=== PATIENT | male | born 1960 | race Caucasian/White ===

== ENCOUNTER 2016-06-19 15:42 | Emergency (ER) ==
[2016-06-19 15:52] VITALS: BP 126/86; TEMP 97.7; BMI 37.0
[2016-06-19 16:27] LABS: ADD URINE MICROSCOPIC NO; BILIRUBIN,URINE Negative (NEGATIVE); KETONES,URINE Trace (NEGATIVE); LEUKOCYTE ESTERASE ,URINE Negative (NEGATIVE); NITRITE,URINE Negative (NEGATIVE); PROTEIN,URINE Negative (NEGATIVE); URINE, BLOOD Negative (NEGATIVE)
[2016-06-19 16:34] LABS: BASOPHILS # (AUTO) 0.1 K/uL (0-0.2); BASOPHILS % (AUTO) 0.9 % (0.0-3.0); EOSINOPHILS # (AUTO) 0.1 K/ul (0.0-0.7); EOSINOPHILS % (AUTO) 1.1 % (0.0-7.0); HEMATOCRIT 47.7 % (42.0-52.0); HEMOGLOBIN 15.6 g/dl (14.0-18.0); IMMATURE GRANULOCYTE % (AUTO) 0.7 % (0.0-5.0); LYMPHOCYTES # (AUTO) 3.3 K/uL (0.60-3.4); LYMPHOCYTES % (AUTO) 39.1 (10.0-50.0); MEAN CORPUSCULAR HEMOGLOBIN 33.7 pg (27.0-31.0); MEAN CORPUSCULAR HGB CONC 32.7 (31.8-35.4); MONOCYTES # (AUTO) 0.8 K/uL (0.4-2.0); MONOCYTES % (AUTO) 9.2 (0-10); NEUTROPHILS # (AUTO) 4.2 K/ul (2.0-6.9); PLATELET COUNT 199 10^3/uL (140-440); RED BLOOD COUNT 4.63 10^6/ul (4.70-6.10); WHITE BLOOD COUNT 8.52 K/ul (4.2-10.2)
[2016-06-19 16:57] LABS: ALBUMIN 3.4 g/dL (3.4-5.0); ALBUMIN/GLOBULIN RATIO 0.92; ANION GAP 14.8; BILIRUBIN,TOTAL 0.37 mg/dL (0.00-1.20); BUN/CREATININE RATIO 24.28; CALCIUM 9.5 mg/dL (8.2-10.2); CREATININE 1.4 mg/dL (0.60-1.10); POTASSIUM 3.8 mmol/L (3.5-5.1); TOTAL PROTEIN 7.1 g/dL (6.4-8.2)
--- NOTE | 2016-06-19 17:17 | CT ---
EXAM: Noncontrast CT of the abdomen and pelvis. HISTORY: Cough. COMPARISON: None. TECHNIQUE: Contiguous axial images at 3 mm intervals were obtained from lung bases through the pelv is. No contrast was given. Coronal reformats were reviewed. FINDINGS: The study is limited without contrast. CHEST: The lung bases show no lobar consolidation or effusion. The heart size is within normal mayo its. ABDOMEN: Evaluation of the soft tissue organs is limited without contrast. LIVER: Noncontrast images of the liver show no solid mass lesion or intrahepatic ductal dilatation. BILIARY: The gallbladder is normally distended. No gallstones are noted. No pericholecystic fluid or inflammation. The common bile duct is normal. SPLEEN: The spleen is unremarkable. PANCREAS: The pancreas shows no mass lesion or peripancreatic inflammation. ADRENAL GLANDS: The adrenal glands are normal. RENAL: The kidneys show no hydronephrosis or nephrolithiasis. There are no obstructing ureteral st ones. No solid mass lesions are identified. RETROPERITONEUM: The aorta is unopacified. No aneurysm is identified. No aortic calcifications ar e seen. There is no retroperitoneal or mesenteric adenopathy. BOWEL: The bowel is unopacified. There is no obstruction or inflammatory change. There is no free fluid or free air. No significant inflammatory changes are seen. Diverticulosis is seen without evidence of acute diverticulitis. The appendix is identified and is normal. PELVIS: BLADDER: The bladder is not well distended which limits evaluation.. GENITOURINARY STRUCTURES: The prostate is unremarkable. OSSEOUS STRUCTURES: The osseous structures are normal for age. IMPRESSION 1. No acute intra-abdominal abnormality. Limited study without contrast. No obstructing ureteral stones. 2. The appendix is normal. 3. Diverticulosis without evidence of acute diverticulitis.
--- NOTE | 2016-06-19 17:23 | ED.PDOC ---
General ED Provider: Dr. PEYTON AUSTIN Chief Complaint: Abdominal Pain Stated Complaint: abdominal pain Time Seen by Physician: 15:45 Mode of Arrival: Walk-In Information Source: Patient, [facility] Exam Limitations: No limitations Primary Care Provider: ROMANA MEDINA Nursing and Triage Documentation Reviewed and Agree: Yes GI Complaint Exam - Abdominal Pain Complaint/Exam Onset: Gradual Duration: 1 day Symptoms Are: Still present Timing: Constant Initial Severity: Moderate Current Severity: Moderate Location of Pain: Diffuse Character: Reports: Aching Aggravating: Reports: None Alleviating: Reports: None Associated Signs and Symptoms: Denies: Diaphoresis, Fever, Cough, Chest pain, Dizziness, Back pain, Constipation, Blood in stool, Dysuria, Urinary frequency, Decreased urine output, Decreased appetite, Discharge, Nausea, Vomiting, Diarrhea, Decreased activity Related History: Reports: Similar episode AAA Risk Factors: Reports: None Cardiac Risk Factors: Reports: None Testicular Torsion Risk Factors: Reports: None Surgical Obstruction Risk Factors: Reports: None Related Surgical History: Reports: None Abdominal Findings: Present: None Review of Systems - Review Of Systems Constitutional: Reports: No symptoms Eyes: Reports: No symptoms Ears, Nose, Mouth, Throat: Reports: No symptoms Respiratory: Reports: No symptoms Cardiac: Reports: No symptoms GI: Reports: Abdominal pain : Reports: No symptoms Musculoskeletal: Reports: No symptoms Skin: Reports: No symptoms Neurological: Reports: No symptoms Endocrine: Reports: No symptoms Hematologic/Lymphatic: Reports: No symptoms All Other Systems: Reviewed and Negative Past Medical History - Past Medical History Endocrine: Reports: DM 1 Cardiovascular: Reports: Hypertension Respiratory: Reports: None Hematological: Reports: Anemia Gastrointestinal: Reports: None Genitourinary: Reports: None Neuro/Psych: Reports: Seizure Musculoskeletal: Reports: None Cancer: Reports: None - Surgical History General Surgical History: Reports: Unknown - Family History Family History: Reports: Unknown - Social History Smoking Status: Never smoker Hx Substance Use: No Alcohol Screening: None Physical Exam - Physical Exam Appearance: Well-appearing, No pain distress, Well-nourished Eyes: ANGELA, EOMI, Conjunctiva clear ENT: Ears normal, Nose normal, Oropharynx normal Respiratory: Airway patent, Breath sounds clear, Breath sounds equal, Respirations nonlabored Cardiovascular: RRR, Pulses normal, No rub, No murmur GI/: Soft, Nontender, No masses, Bowel sounds normal, No Organomegaly Musculoskeletal: Normal strength, ROM intact, No edema, No calf tenderness Skin: Warm, Dry, Normal color Neurological: Sensation intact, Motor intact, Reflexes intact, Cranial nerves intact, Alert, Oriented Psychiatric: Affect appropriate, Mood appropriate Interpretation - Radiology Interpretation Radiology Interpretation By: Radiologist Radiology Results: No acute changes Critical Care Note - Critical Care Note Total Time (mins): 0 Course - Course Hematology/Chemistry: 06/19/16 16:30 06/19/16 16:30 Orders, Labs, Meds: Lab Review 06/19/16 06/19/16 15:55 16:30 WBC 8.52 RBC 4.63 L Hgb 15.6 Hct 47.7 MCV 103.0 H MCH 33.7 H MCHC 32.7 RDW Coeff of Thiago 12.4 Plt Count 199 Immature Gran % (Auto) 0.7 Neut % (Auto) 49.0 Lymph % (Auto) 39.1 [place] % (Auto) 9.2 Eos % (Auto) 1.1 Baso % (Auto) 0.9 Immature Gran # (Auto) 0.1 Neut # 4.2 Lymph # 3.3 [place] # 0.8 Eos # 0.1 Baso # 0.1 Sodium 137 Potassium 3.8 Chloride 102 Carbon Dioxide 24 Anion Gap 14.8 BUN 34 H Creatinine 1.40 H Estimated GFR (MDRD) 52.00 BUN/Creatinine Ratio 24.28 Glucose 268 H Calcium 9.5 Total Bilirubin 0.37 AST 32 ALT 21 Alkaline Phosphatase 45 L Total Protein 7.1 Albumin 3.4 Globulin 3.7 Albumin/Globulin Ratio 0.92 Amylase 33 Lipase 95 H Urine Color Yellow Urine Clarity Clear Urine pH 6.0 Ur Specific [place] 1.020 Urine Protein Negative Urine Glucose (UA) 2+ Urine Ketones Trace Urine Blood Negative Urine Nitrite Negative Urine Bilirubin Negative Urine Urobilinogen 1.0 Ur Leukocyte Esterase Negative Orders Category Date Time Status EKG-(ED ONLY) Stat CARDIO 06/19/16 16:20 Completed AMYLASE Stat LAB 06/19/16 16:30 Completed CBC W/ AUTO DIFF Stat LAB 06/19/16 16:30 Completed COMPREHENSIVE METABOLIC PANEL Stat LAB 06/19/16 16:30 Completed LIPASE Stat LAB 06/19/16 16:30 Completed URINALYSIS C & S IF INDICATED Stat LAB 06/19/16 15:[address] ABDOMEN/PELVIS WO CONTRAST Stat RADS 06/19/16 16:20 Completed Vital Signs: Temp Pulse Resp BP Pulse Ox 06/19/16 15:45 97.7 F 85 20 126/86 95 Departure - Departure Time of Disposition: 17:23 Disposition: HOME SELF-CARE Discharge Problem: Abdominal pain Instructions: Abdominal Pain (ED) Condition: Good Pt referred to PMD for follow-up: No Additional Instructions: Please call your Family Physician as soon as possible to schedule a follow-up appointment. Allergies/Adverse Reactions: Allergies No Known Allergies Allergy (Verified 06/19/16 15:50) Home Medications: Ambulatory Orders Aspirin [Aspirin Chewable] 81 mg PO DAILYWM 06/23/14 Atorvastatin Calcium 10 mg PO BEDTIME 06/23/14 Bisacodyl 10 mg RC DIRECTED PRN 06/23/14 Calcium Carbonate/Vitamin D3 [Calcium 600 + Vit D 200 Tablet] 1 each PO BID 07/05 Cholecalciferol (Vitamin D3) [Vitamin D] 1,000 unit PO BID 06/23/14 Divalproex Sodium [Depakote] 500 mg PO Q8HR 06/23/14 Fenofibrate,Micronized [Fenofibrate] 200 mg PO BEDTIME 06/23/14 Ferrous Sulfate 325 mg PO DAILY 06/23/14 Folic Acid 1 mg PO DAILY 06/23/14 Hydrochlorothiazide 12.5 mg PO DAILY 06/23/14 Hydrocodone/Acetaminophen [Hydrocodon-Acetaminophen 5-325] 1 each PO Q6HR PRN Insulin Detemir [Levemir] 80 unit SUBCUT BID 06/23/14 Insulin Lispro [Humalog] 15 unit SUBCUT TIDWM 06/23/14 Levetiracetam [Keppra] 1,000 mg PO DAILY 06/23/14 Levetiracetam [Keppra] 1,500 mg PO BEDTIME 06/23/14 Losartan Potassium 100 mg PO DAILY 06/23/14 Mag Hydrox/Al Hydrox/Simeth [Alyssa-Lanta Liquid] 30 ml PO DIRECTED PRN Magnesium Hydroxide [Milk of Magnesia] 30 ml PO DAILY PRN 06/23/14 Magnesium Oxide [Magnesium] 400 mg PO BID 06/23/14 Sennosides [Senna] 17.2 mg PO TID 06/23/14 Topiramate [Topamax] 200 mg PO BID 06/23/14 Cyanocobalamin (Vitamin B-12) [Vitamin B12] 1,000 mcg PO DAILY 06/19/16 Ondansetron HCl [Zofran Tab] 8 mg PO Q8H PRN 06/19/16
== END 2016-06-19 17:54 | disposition home or self-care (01) ==
LOC: ED 15:42
DX: R10.84 Generalized abdominal pain (principal); E10.9 Type 1 diabetes mellitus without complications; I10 Essential (primary) hypertension; D64.9 Anemia, unspecified; Z79.899 Other long term (current) drug therapy
CPT/HCPCS: 36415; 80053; 81001; 82150; 83690; 85025; 93005; 93010; 99283

== ENCOUNTER 2016-08-21 17:26 | Emergency (ER) ==
[2016-08-21 17:28] VITALS: BP 127/78; TEMP 98.4
[2016-08-21 17:41] VITALS: BMI 36.6
--- NOTE | 2016-08-21 18:08 | ED.PDOC ---
General ED Provider: Dr. CONSTANTINE GARZA JR Chief Complaint: Fall Stated Complaint: pt flipped a chair over sideways at the [facility]term today and hit head. no loc. complians of pain to right ribs and knot to left forehead. [ End ]at 1245 skull nontender right ribs tender Time Seen by Physician: 18:02 Mode of Arrival: Walk-In Information Source: Patient, [place] Exam Limitations: No limitations Primary Care Provider: ROMANA MEDINA Nursing and Triage Documentation Reviewed and Agree: No Review of Systems - Review Of Systems Constitutional: Reports: No symptoms Eyes: Reports: No symptoms Ears, Nose, Mouth, Throat: Reports: No symptoms Respiratory: Reports: No symptoms Cardiac: Reports: No symptoms GI: Reports: No symptoms : Reports: No symptoms Musculoskeletal: Reports: Other Skin: Reports: No symptoms Neurological: Reports: No symptoms Endocrine: Reports: No symptoms Hematologic/Lymphatic: Reports: No symptoms All Other Systems: Other Past Medical History - Past Medical History Endocrine: Reports: DM 1 Cardiovascular: Reports: Hypertension Respiratory: Reports: None Hematological: Reports: Anemia Gastrointestinal: Reports: None, GERD Genitourinary: Reports: None Neuro/Psych: Reports: Seizure Musculoskeletal: Reports: None Cancer: Reports: None Other Pertinent Past Medical History: [place] bec[place]ase his right leg went out on him - Surgical History General Surgical History: Reports: Orthopedic (sx Finger Right Hand, Right Ankle , Right Toe ), Unknown - Family History Family History: Reports: Unknown - Social History Smoking Status: Never smoker Hx Substance Use: No Alcohol Screening: None Physical Exam - Physical Exam Appearance: Well-appearing Pain Distress: Moderate Neck: Supple GI/: Soft, Nontender Musculoskeletal: Normal strength, ROM intact, No calf tenderness (tender right ribs) Skin: Warm, Dry, Normal color (note lesion right upper quadrant- 0ld injury- hornet sting per patientn) Neurological: Alert Critical Care Note - Critical Care Note Total Time (mins): 0 Course - Course Orders, Labs, Meds: Orders Category Date Time Status Tramadol HCl [Ultram] MEDS 08/21/16 18:23 Discontinued 50 mg PO ONCE STA RIB, W/PA CHEST RIGHT Stat RADS 08/21/16 18:11 Ordered Medications Discontinued Medications Generic Name Dose Route Start Last Admin Trade Name Freq PRN Reason Stop Dose Admin Tramadol HCl 50 mg 08/21/16 18:23 Ultram PO 08/21/16 18:24 ONCE STA Vital Signs: Temp Pulse Resp BP Pulse Ox 08/21/16 17:26 98.4 F 99 H 18 127/78 92 L Departure - Departure Time of Disposition: 18:35 Disposition: HOME SELF-CARE Discharge Problem: Falls Contusion of rib on right side Qualifiers: Encounter type: initial encounter Qualifier Code: (S20.211A) Contusion of right front wall of thorax, initial encounter Instructions: Rib Contusion (ED) Condition: Good Pt referred to PMD for follow-up: Yes Additional Instructions: deep breath twice a day may use norco for pain recheck PMD 3-6 days return if fever over 101.0 rib xrays will be read in the morning Allergies/Adverse Reactions: Allergies No Known Allergies Allergy (Verified 06/19/16 15:50) Home Medications: Ambulatory Orders Aspirin [Aspirin Chewable] 81 mg PO DAILYWM 06/23/14 Atorvastatin Calcium 10 mg PO BEDTIME 06/23/14 Bisacodyl 10 mg RC DIRECTED PRN 06/23/14 Calcium Carbonate/Vitamin D3 [Calcium 600 + Vit D 200 Tablet] 1 each PO BID 07/05 Cholecalciferol (Vitamin D3) [Vitamin D] 1,000 unit PO BID 06/23/14 Divalproex Sodium [Depakote] 500 mg PO Q8HR 06/23/14 Fenofibrate,Micronized [Fenofibrate] 200 mg PO BEDTIME 06/23/14 Ferrous Sulfate 325 mg PO DAILY 06/23/14 Folic Acid 1 mg PO DAILY 06/23/14 Hydrochlorothiazide 12.5 mg PO DAILY 06/23/14 Hydrocodone/Acetaminophen [Hydrocodon-Acetaminophen 5-325] 1 each PO Q6HR PRN Insulin Detemir [Levemir] 80 unit SUBCUT BID 06/23/14 Insulin Lispro [Humalog] 15 unit SUBCUT TIDWM 06/23/14 Levetiracetam [Keppra] 1,000 mg PO DAILY 06/23/14 Levetiracetam [Keppra] 1,500 mg PO BEDTIME 06/23/14 Losartan Potassium 100 mg PO DAILY 06/23/14 Mag Hydrox/Al Hydrox/Simeth [Alyssa-Lanta Liquid] 30 ml PO DIRECTED PRN Magnesium Hydroxide [Milk of Magnesia] 30 ml PO DAILY PRN 06/23/14 Magnesium Oxide [Magnesium] 400 mg PO BID 06/23/14 Sennosides [Senna] 17.2 mg PO TID 06/23/14 Topiramate [Topamax] 200 mg PO BID 06/23/14 Cyanocobalamin (Vitamin B-12) [Vitamin B12] 1,000 mcg PO DAILY 06/19/16 Ondansetron HCl [Zofran Tab] 8 mg PO Q6H PRN 06/19/16 Acetaminophen [Tylenol] 650 mg PO Q4H PRN 08/21/16 Albuterol Sulfate 0.083% Neb [Albuterol 0.083% Neb] 1 vial NEB RTQ8H PRN Benzonatate [Tessalon Perles] 200 mg PO TID PRN 08/21/16 Calcium Carbonate [Tums] 200 mg PO Q6H PRN 08/21/16 Guaifenesin [Guaifenesin ER] 600 mg PO Q6H PRN 08/21/16 Na Phos,M-B/Na Phos,Di-Ba [Enema] 133 ml RC PRN PRN 08/21/16 Phenol [Sore Throat [place]] 2 spray IH Q4H PRN 08/21/16
[2016-08-21] MEDS ORDERED: ULTRAM PO STA (18:23)
--- NOTE | 2016-08-22 07:18 | DI ---
EXAM: PA view of the chest and five views of the right ribs HISTORY: Fall with right lower lateral rib tenderness. COMPARISON: Chest x-ray 12/12/2015. FINDINGS: Cardiomediastinal silhouette is unremarkable. The left chest wall generator and wire is u nchanged. There is no pneumothorax. There is no effusion or consolidation. The right ribs demonst rate no cortical irregularity or displaced fracture. There is no lytic or blastic lesion. IMPRESSION: No acute abnormality or displaced fracture of the right ribs.
== END 2016-08-21 18:57 | disposition home or self-care (01) ==
LOC: ED 17:26
DX: S20.211A Contusion of right front wall of thorax, initial encounter (principal); S09.90XA Unspecified injury of head, initial encounter; W07.XXXA Fall from chair, initial encounter; Y92.129 Unspecified place in nursing home as the place of occurrence of the external cause
CPT/HCPCS: 99283

== ENCOUNTER 2016-09-05 20:29 | Outpatient (CLI) ==
[2016-09-05 21:01] VITALS: BMI 36.9
== END 2016-09-05 20:30 ==
LOC: AMBL 20:29
PROVIDERS: ATTEND Emergency Medicine
DX: R56.9 Unspecified convulsions (principal); S01.01XA Laceration without foreign body of scalp, initial encounter; R10.31 Right lower quadrant pain; W19.XXXA Unspecified fall, initial encounter; Y92.121 Bathroom in nursing home as the place of occurrence of the external cause

== ENCOUNTER 2016-09-05 20:42 | Emergency (ER) | payer OTHER ==
[2016-09-05 21:01] VITALS: BP 170/98; TEMP 97.6; BMI 36.9
--- NOTE | 2016-09-05 21:21 | ED.PDOC ---
General ED Provider: Dr. BUTCH GILLIAM Chief Complaint: Fall Stated Complaint: Patient fell at the [place]. injured the head and neck lower back, while the EMT was bringing him he had seizure and got controlled by it self, now patient is awake and alert. Time Seen by Physician: 21:18 Mode of Arrival: Ambulance Information Source: Patient, [facility], EMT Primary Care Provider: ROMANA MEDINA Nursing and Triage Documentation Reviewed and Agree: Yes Trauma/Injury Complaint Exam - Head Injury Complaint/Exam Location of Pain: Reports: Scalp Mechanism of Injury: Reports: Trauma Symptoms Are: Still present Initial Severity: Mild Current Severity: Mild Character: Reports: Dull Aggravating: Reports: None Alleviating: Reports: None Associated Signs and Symptoms: Reports: Seizure, Neck pain. Denies: Confusion, Memory loss, Epistaxis, Dental malocclusion, Nausea, Vomiting Loss of Consciousness: None Related History: Reports: Similar episode SDH Risk Factors: Present: None Cervical Spine Injury Risk Factors: Present: None Related Surgical History: Reports: None Immobilization Removed Post Exam: No Head Injury Findings: Present: Normal findings Focal Weakness: Present: None Focal Sensory Loss: Present: None Gait: Unable Gag Reflex Present: Yes Finger to Nose: Normal Differential Diagnoses: Arthritis, Trauma Review of Systems - Review Of Systems Constitutional: Reports: Weakness Eyes: Reports: No symptoms Ears, Nose, Mouth, Throat: Reports: No symptoms Respiratory: Reports: No symptoms Cardiac: Reports: No symptoms GI: Reports: No symptoms : Reports: No symptoms Musculoskeletal: Reports: No symptoms Skin: Reports: No symptoms Neurological: Reports: Headache Endocrine: Reports: No symptoms Hematologic/Lymphatic: Reports: No symptoms All Other Systems: Reviewed and Negative Past Medical History - Past Medical History Previously Healthy: No Endocrine: Reports: DM 1 Cardiovascular: Reports: Hypertension Respiratory: Reports: None Hematological: Reports: Anemia Gastrointestinal: Reports: None, GERD Genitourinary: Reports: None Neuro/Psych: Reports: Seizure Musculoskeletal: Reports: None Cancer: Reports: None Other Pertinent Past Medical History: states is in the [place] bec[place] his right leg went out on him - Surgical History General Surgical History: Reports: Orthopedic (sx Finger Right Hand, Right Ankle , Right Toe ), Unknown - Family History Family History: Reports: Unknown - Social History Smoking Status: Never smoker Hx Substance Use: No Alcohol Screening: None - Immunizations Tetanus Shot up to Date: (unknown) Physical Exam - Physical Exam Appearance: Well-appearing, Obese Eyes: EOMI, Conjunctiva clear ENT: Ears normal, Nose normal, Oropharynx normal Respiratory: Airway patent, Breath sounds clear, Breath sounds equal, Respirations nonlabored Cardiovascular: RRR, Pulses normal, No rub, No murmur GI/: Soft, Nontender, No masses, Bowel sounds normal, No Organomegaly Musculoskeletal: Normal strength, ROM intact, No edema, No calf tenderness Skin: Warm, Dry, Normal color Neurological: Sensation intact, Motor intact, Reflexes intact, Cranial nerves intact, Alert, Oriented Psychiatric: Affect appropriate, Mood appropriate Interpretation - Radiology Interpretation Radiology Interpretation By: Radiologist Radiology Results: Negative Exam Interpreted: CT Scan Critical Care Note - Critical Care Note Total Time (mins): 0 Course - Course Hematology/Chemistry: 09/05/16 21:25 09/05/16 21:25 Orders, Labs, Meds: Lab Review 09/05/16 21:25 WBC 8.00 RBC 4.49 L Hgb 15.3 Hct 44.9 MCV 100.0 H MCH 34.1 H MCHC 34.1 RDW Coeff of Thiago 12.4 Plt Count 212 Immature Gran % (Auto) 0.9 Neut % (Auto) 54.2 Lymph % (Auto) 30.1 [place] % (Auto) 12.6 H Eos % (Auto) 1.4 Baso % (Auto) 0.8 Immature Gran # (Auto) 0.1 Neut # 4.3 Lymph # 2.4 [place] # 1.0 Eos # 0.1 Baso # 0.1 Sodium 137 Potassium 4.4 Chloride 105 Carbon Dioxide 19 L Anion Gap 17.4 BUN 28 H Creatinine 1.50 H Estimated GFR (MDRD) 48.00 BUN/Creatinine Ratio 18.66 Glucose 319 H Calcium 9.3 Total Bilirubin 0.33 AST 45 H ALT 29 Alkaline Phosphatase 52 Total Protein 7.7 Albumin 3.5 Globulin 4.2 Albumin/Globulin Ratio 0.83 Valproic Acid 50.60 Orders Category Date Time Status CBC W/ AUTO DIFF Stat LAB 09/05/16 21:25 Completed COMPREHENSIVE METABOLIC PANEL Stat LAB 09/05/16 21:25 Completed KEPPRA/LEVETIRACETAM Stat LAB 09/05/16 21:25 Received VALPORIC ACID (DEPAKENE) Stat LAB 09/05/16 21:[address] CERVICAL SPINE W/O CONTRAST Stat RADS 09/05/16 21:[address] HEAD W/O CONTRAST Stat RADS 09/05/16 21:[address] LUMBAR SPINE W/O CONTRAST Stat RADS 09/05/16 21:14 Completed Vital Signs: Temp Pulse Resp BP Pulse Ox 09/05/16 20:43 97.6 F 85 20 170/98 H 91 L Departure - Departure Time of Disposition: 22:49 Disposition: TRANSFER SNF Discharge Problem: Falls Instructions: Fall Prevention for Older Adults (ED), Fall Prevention (ED) Condition: Stable Pt referred to PMD for follow-up: Yes Additional Instructions: Fall precautions Increase hydration Allergies/Adverse Reactions: Allergies No Known Allergies Allergy (Verified 06/19/16 15:50) Home Medications: Ambulatory Orders Aspirin [Aspirin Chewable] 81 mg PO DAILYWM 06/23/14 Atorvastatin Calcium 10 mg PO BEDTIME 06/23/14 Bisacodyl 10 mg RC DIRECTED PRN 06/23/14 Calcium Carbonate/Vitamin D3 [Calcium 600 + Vit D 200 Tablet] 1 each PO BID 07/05 Cholecalciferol (Vitamin D3) [Vitamin D] 1,000 unit PO BID 06/23/14 Divalproex Sodium [Depakote] 500 mg PO Q8HR 06/23/14 Fenofibrate,Micronized [Fenofibrate] 200 mg PO BEDTIME 06/23/14 Ferrous Sulfate 325 mg PO DAILY 06/23/14 Folic Acid 1 mg PO DAILY 06/23/14 Hydrochlorothiazide 12.5 mg PO DAILY 06/23/14 Hydrocodone/Acetaminophen [Hydrocodon-Acetaminophen 5-325] 1 each PO Q6HR PRN Insulin Detemir [Levemir] 80 unit SUBCUT BID 06/23/14 Insulin Lispro [Humalog] 15 unit SUBCUT TIDWM 06/23/14 Levetiracetam [Keppra] 1,000 mg PO DAILY 06/23/14 Levetiracetam [Keppra] 1,500 mg PO BEDTIME 06/23/14 Losartan Potassium 100 mg PO DAILY 06/23/14 Mag Hydrox/Al Hydrox/Simeth [Alyssa-Lanta Liquid] 30 ml PO DIRECTED PRN Magnesium Hydroxide [Milk of Magnesia] 30 ml PO DAILY PRN 06/23/14 Magnesium Oxide [Magnesium] 400 mg PO BID 06/23/14 Sennosides [Senna] 17.2 mg PO TID 06/23/14 Topiramate [Topamax] 200 mg PO BID 06/23/14 Cyanocobalamin (Vitamin B-12) [Vitamin B12] 1,000 mcg PO DAILY 06/19/16 Ondansetron HCl [Zofran Tab] 8 mg PO Q6H PRN 06/19/16 Acetaminophen [Tylenol] 650 mg PO Q4H PRN 08/21/16 Albuterol Sulfate 0.083% Neb [Albuterol 0.083% Neb] 1 vial NEB RTQ8H PRN Benzonatate [Tessalon Perles] 200 mg PO TID PRN 08/21/16 Calcium Carbonate [Tums] 200 mg PO Q6H PRN 08/21/16 Guaifenesin [Guaifenesin ER] 600 mg PO Q6H PRN 08/21/16 Na Phos,M-B/Na Phos,Di-Ba [Enema] 133 ml RC PRN PRN 08/21/16 Phenol [Sore Throat [place]] 2 spray IH Q4H PRN 08/21/16 Disposition Discussed With: Patient
[2016-09-05 21:27] LABS: BASOPHILS # (AUTO) 0.1 K/uL (0-0.2); BASOPHILS % (AUTO) 0.8 % (0.0-3.0); EOSINOPHILS # (AUTO) 0.1 K/ul (0.0-0.7); EOSINOPHILS % (AUTO) 1.4 % (0.0-7.0); HEMATOCRIT 44.9 % (42.0-52.0); HEMOGLOBIN 15.3 g/dl (14.0-18.0); IMMATURE GRANULOCYTE % (AUTO) 0.9 % (0.0-5.0); LYMPHOCYTES # (AUTO) 2.4 K/uL (0.60-3.4); LYMPHOCYTES % (AUTO) 30.1 (10.0-50.0); MEAN CORPUSCULAR HEMOGLOBIN 34.1 pg (27.0-31.0); MEAN CORPUSCULAR HGB CONC 34.1 (31.8-35.4); MONOCYTES % (AUTO) 12.6 (0-10); NEUTROPHILS # (AUTO) 4.3 K/ul (2.0-6.9); NEUTROPHILS % (AUTO) 54.2; PLATELET COUNT 212 10^3/uL (140-440); RED BLOOD COUNT 4.49 10^6/ul (4.70-6.10)
[2016-09-05 21:47] LABS: ALBUMIN 3.5 g/dL (3.4-5.0); ALBUMIN/GLOBULIN RATIO 0.83; ANION GAP 17.4; BILIRUBIN,TOTAL 0.33 mg/dL (0.00-1.20); BUN/CREATININE RATIO 18.66; CALCIUM 9.3 mg/dL (8.2-10.2); CREATININE 1.5 mg/dL (0.60-1.10); POTASSIUM 4.4 mmol/L (3.5-5.1); TOTAL PROTEIN 7.7 g/dL (6.4-8.2)
--- NOTE | 2016-09-05 21:56 | CT ---
Examination: CT head without contrast 09/05/2016 Clinical information: Fall with neck and head pain. Comparison: None. TECHNIQUE: Noncontrast helical imaging from the foramen magnum to the vertex. 5 mm axial, 3 mm sag ittal and 3 mm coronal images are submitted for review. FINDINGS: There is no evidence of acute intracranial hemorrhage. The ventricles are normal in size and configuration. There is no mass effect, midline shift or extra-axial abnormality. There is a prominent perivascular space within the left basal ganglia. There is normal denny-white matter diffe rentiation. No CT evidence of an acute ischemic infarct. The calvarium is intact. There is hypero stosis frontalis interna. Minor left maxillary sinus mucosal thickening. Impression: No CT evidence of acute intracranial abnormality.
--- NOTE | 2016-09-05 22:03 | CT ---
Examination: CT cervical spine without contrast 09/05/2016 Clinical information: Fall with neck pain. Injury. Comparison: None. TECHNIQUE: Noncontrast helical imaging was performed through the cervical spine. 2 mm sagittal, ax ial and coronal images are submitted for review. FINDINGS: There is no acute fracture or subluxation. The cervical vertebral bodies are normal in h eight, AP alignment and osseous architecture. There is no abnormal prevertebral soft tissue swellin g. There is no significant loss of intervertebral disc height. The C1-C2 articulation is intact. At the C3-C4 level, there is mild right greater than left facet hypertrophy. There is a central disc herniation which causes mild-moderate central spinal canal stenosis and may deform the cord. At the C4-C5 level, there is a right paracentral disc/osteophyte complex causes moderate central spi nal canal stenosis. There is mild right neural foraminal stenosis due to facet and uncovertebral hy pertrophy. Mild right facet hypertrophy. At the C5-6 level, there is a posterior disc/osteophyte complex eccentric right which causes mild ce ntral spinal canal stenosis. Mild bilateral facet hypertrophy. There is minimal bilateral foramina l stenosis due to facet and uncovertebral hypertrophy. At the C6-C7 level, there is a minor dorsal spondylotic ridge eccentric right. There is no signific ant central spinal canal stenosis or foraminal stenosis. At the C7-T1 level, there is bilateral facet hypertrophy. There is a minor dorsal spondylotic ridge eccentric right. There is no significant central spinal canal stenosis or foraminal stenosis. Impression: 1. No acute fracture or subluxation. 2. Mild-moderate C3-C4, moderate C4-C5, and mild C5-6 central spinal canal stenosis. 3. Mild right C4-C5 and minimal bilateral C5-6 foraminal stenosis.
--- NOTE | 2016-09-05 22:03 | CT ---
EXAM: Noncontrast CT of the lumbar spine HISTORY: Fall, injury COMPARISON: 11/20/2014 TECHNIQUE: Noncontrast CT of the lumbar spine FINDINGS: The lumbar vertebral bodies are normal in height. No lumbar spine fractures are seen. No listhesis is identified. No significant intervertebral disc height loss is identified. A minimal disc bulge i s seen at L3-L4. Small disc bulges are seen at L4-L5 and L5-S1. No high-grade stenosis is seen. Left renal peripelvic cysts are suspected. Mild atherosclerotic calcifications are present. IMPRESSION: No evidence of acute osseous injury to the lumbar spine.
== END 2016-09-05 23:50 ==
LOC: ED 20:42
DX: S09.90XA Unspecified injury of head, initial encounter (principal); S19.9XXA Unspecified injury of neck, initial encounter; S39.92XA Unspecified injury of lower back, initial encounter; R56.9 Unspecified convulsions; W19.XXXA Unspecified fall, initial encounter; Y92.129 Unspecified place in nursing home as the place of occurrence of the external cause; E10.9 Type 1 diabetes mellitus without complications; I10 Essential (primary) hypertension; Z79.899 Other long term (current) drug therapy
CPT/HCPCS: 36415; 80053; 80164; 82542; 85025; 99283

== ENCOUNTER 2018-06-17 13:19 | Outpatient (CLI) ==
[2018-03-14 19:37] VITALS: BMI 36.9
== END 2018-06-17 13:46 | disposition short-term general hospital (02) ==
LOC: AMBL 13:19
PROVIDERS: ATTEND Internal Medicine
DX: R56.9 Unspecified convulsions (principal); S00.03XA Contusion of scalp, initial encounter; R11.2 Nausea with vomiting, unspecified; M54.2 Cervicalgia; M54.9 Dorsalgia, unspecified; E16.2 Hypoglycemia, unspecified; W19.XXXA Unspecified fall, initial encounter

== ENCOUNTER 2018-07-27 11:28 | Outpatient (CLI) | payer OTHER ==
[2018-03-14 19:37] VITALS: BMI 36.9
== END 2018-07-27 11:45 | disposition short-term general hospital (02) ==
LOC: AMBL 11:28
PROVIDERS: ATTEND Emergency Medicine
DX: R07.89 Other chest pain (principal); W19.XXXA Unspecified fall, initial encounter

== ENCOUNTER 2024-11-21 15:46 | Observation (INO) ==
--- NOTE | 2024-11-21 16:55 | ED.PDOC ---
General [facility] ED Provider: Dr. GRUPO AMAYA DO Chief Complaint: Back Pain Stated Complaint: 64-year-old white male [facility]. He is wheelchair-bound but alert and oriented and able to contribute to ADLs but sometimes will not. He is accompanied by one of the employees of the penitentiary. Initial complaint for coming to the emergency room was "back pain". Apparently patient's caregivers had called his primary care physician and explained patient was complaining of right-sided back pain. At that time they also advised PCP of severe yeast infection with patient itching scrotum constantly. They had made an appointment for next week but then provider said they should come to the emergency room instead because they would have to wait on the results from testing done in his office. So they presented to the emergency room. As noted patient is wheelchair-bound. When he sits he apparently leans to the right over the arm of the chair and over the arm of what ever couch he is sitting on constantly. When I go into the exam room today he is leaning to the right over the rail of the bed. Unclear if this is what is causing back pain or not but certainly it is the location of his back pain. Patient is mostly cooperative but as I am trying to do a full exam and listen to his back he becomes agitated and starts calling me names. However he does allow us to do a scrotal exam and groin exam and findings are documented below. Patient initially was responsive and appeared to feel unwell but was not acutely ill. However during the course of his stay in the ER, he became increasingly less responsive and less interactive. No loss of consciousness no altered mental status in terms of confusion just less and less interactive. No complaints of pain on urination no complaints of nausea,vomiting, diarrhea per staff member. They deny any recent outbreaks of COVID or flu. Patient has not had any headache, runny nose, sore throat, cough, pain on urination, but does have significant swelling bilateral lower extremities that is chronic. No brawny induration however so not too severe. No evidence of acute cellulitis but some evidence of previous episodes of cellulitis is apparent. Patient is functional but since mom's has refused to get out of the wheelchair and has been doing less and less to assist with his own ADLs. Time Seen by Provider: 11/21/24 19:58 Mode of Arrival: Walk-In Information Source: Patient Exam Limitations: Other (mentally challenged) Primary Care Provider: SERGIO PASTRANA Nursing and Triage Documentation Reviewed and Agree: Yes Opioid Naive vs. Tolerant Does Patient Take Opioids?: No Is Patient Opioid Naive?: Yes What is Opioid Naive?: *Opioid Naive implies the patient is not already taking opioids or not chronically receiving opioids on a daily basis. *PRN dosing is not "usually" associated with tolerance. *Patients are at higher risk of over-sedation and aspiration. Is Patient Opioid Tolerant?: No What is Opioid Tolerant?: *Opioid Tolerance implies less than the expected response to an opioid. *Acquired tolerance is defined by the patient taking 60mg of oral morphine daily (or equianalgesic dose of another opioid) for 1 week or more. *Often associated with chronic pain. *May take more than usual dose to achieve desired pain control. Review of Systems Review Of Systems Constitutional: Denies Chills or Fever Eyes: Denies Vision change Ears, Nose, Mouth, Throat: Denies Ear pain or Nose discharge Respiratory: Denies Cough or Shortness of Breath Cardiac: Denies Chest pain GI: Denies Abdominal pain, Diarrhea, Nausea or Vomiting : Denies Burning or Dysuria Musculoskeletal: Reports Back pain, Muscle pain and Muscle stiffness Skin: Denies Bruising Neurological: Reports Anxiety and Depressed [facility] Medical History Anxiety (07/05/20) F41.9 - Anxiety disorder, unspecified (ICD-10) Disturbance in sleep behavior (07/05/20) G47.9 - Sleep disorder, unspecified (ICD-10) Gastroesophageal reflux disease (07/05/20) K21.9 - Gastro-esophageal reflux disease without esophagitis (ICD-10) Hypercholesterolemia (07/05/20) E78.00 - Pure hypercholesterolemia, unspecified (ICD-10) Hypertensive disorder (07/05/20) I10 - Essential (primary) hypertension (ICD-10) Impaired mobility (08/05/20) Z74.09 - Other reduced mobility (ICD-10) Seasonal allergies (07/05/20) J30.2 - Other seasonal allergic rhinitis (ICD-10) Seizure disorder (08/05/20) G40.909 - Epilepsy, unspecified, not intractable, without status epilepticus (ICD-10) Type 2 diabetes mellitus (07/05/20) E11.9 - Type 2 diabetes mellitus without complications (ICD-10) Social History Smoking and tobacco status: Never smoker Physical Exam Physical Exam Appearance: Reports Other (Mildly disheveled elderly white male who appears slightly older than stated age. He is alert but appears somewhat defensive and mildly antagonistic. However initially cooperative. No acute distress.) Ill-appearing: None Pain Distress: None Eyes: Reports ANGELA, EOMI and Conjunctiva clear ENT: Reports Ears normal, Nose normal, Oropharynx normal and Erythema (Mild erythema posterior pharynx but no exudates no tonsillar swelling.); Denies Rhinorrhea Neck: Supple Respiratory: Reports Airway patent, Breath sounds clear, Breath sounds equal, Respirations nonlabored and Other (Exam is limited by patient's lack of cooperation and/or understanding. Breath sounds are clear mid lungs to upper airways. Uncertain regarding lower airway is unable to get patient to take deep breaths. Maybe some crackles on the right. No definite wheezes.) Cardiovascular: Reports RRR, Pulses normal and No murmur GI/: Reports Soft, Nontender, Bowel sounds normal and Other (Abdomen is soft, protuberant but not distended, mild to moderate adiposity. Not evaluated for masses or megaly. Nontender with normoactive bowel sounds.) Musculoskeletal: Reports No edema, Limited ROM, Limited strength (Right back just at CVA junction is markedly tender to percussion pubic rales are noted. Question infiltrate versus consolidation versus other.) and Other (Patient has intact bilateral upper extremity 5 out of 5. He moves lower extremities without focal deficit but will not do strength testing or ambulate. Strength not evaluated adequately. No facial asymmetries are noted.) Skin: Reports Dry, Normal color and Other (Skin is is dry with some scaliness. No rashes or sores are noted. Patient does have some scaliness to the skin consistent with cirrhosis.) Neurological: Reports Sensation intact, Alert and Other (Patient without facial asymmetries, as noted upper extremity strength intact bilateral lower extremity unable to evaluate.) Psychiatric: Reports Affect appropriate and Mood appropriate Interpretation Radiology Interpretation Radiology Interpretation By: ED Physician (Chest x-ray viewed by this physician. Some haziness at bilateral basal borders. Will obtain CT to evaluate further. Otherwise no cardiomegaly no bony deformities. Radiology over read reviewed) Exam Interpreted: CT Scan Xray Comments: CT chest demonstrates bilateral consolidation c/w pneumonia. Physician Progress Note Physician Progress Note: 64-year-old white male [facility]. He is wheelchair-bound but alert and oriented and able to contribute to ADLs but sometimes will not. He is accompanied by one of the employees of the penitentiary. Initial complaint for coming to the emergency room was "back pain". Apparently patient's caregivers had called his primary care physician and explained patient was complaining of right-sided back pain. At that time they also advised PCP of severe yeast infection with patient itching scrotum constantly. Initial evaluation had focused primarily on complaint of back pain. However staff member repeatedly mentions a neighbor concern for possible kidney infection and also fact that patient has been scratching his scrotum and his crotch nonstop. Went ahead and [facility] labs and did include chest x-ray and exam of scrotum. In addition patient's dwindling alertness was noted. White count was 20.[address] chest revealed bilateral lobe lower lobe pneumonia. Will admit for aggressive pulmonary toiletry, IV fluids, IV antibiotics and follow-up from there. Also have requested hospitalist to address moderate to severe yeast infection of groin and scrotum. Course Course 11/22/24 05:13 11/22/24 05:13 Orders, Labs, Meds: Lab Review 11/21/24 11/21/24 18:15 19:32 WBC 20.18 H D RBC 4.45 L Hgb 14.4 Hct 45.5 MCV 102.2 H MCH 32.4 H MCHC 31.6 L RDW Coeff of Thiago 12.7 Plt Count 321 Immature Gran % (Auto) 0.8 Neut % (Auto) 79.9 H Lymph % (Auto) 9.9 L Frio % (Auto) 8.8 Eos % (Auto) 0.3 Baso % (Auto) 0.3 Neut # (Auto) 16.1 H Lymph # (Auto) 2.0 Frio # (Auto) 1.8 Eos # (Auto) 0.1 Baso # (Auto) 0.1 Immature Gran # (Auto) 0.2 ESR 65 H PT 11.9 H INR 1.15 Sodium 136.6 Potassium 4.47 Chloride 93.7 L Carbon Dioxide 30.0 Anion Gap 17.37 BUN 38.7 H Creatinine 1.30 H Estimated GFR (MDRD) 55.00 BUN/Creatinine Ratio 29.76 Glucose 380.1 H Lactic Acid 1.23 Calcium 9.65 Magnesium 2.01 Total Bilirubin 0.84 AST 34.1 ALT 17.4 Alkaline Phosphatase 73.2 Total Protein 8.50 H Albumin 3.83 Globulin 4.67 Albumin/Globulin Ratio 0.82 Procalcitonin 1.20 H Orders Category Date Time Status ADMIT OBSERVATION [PLACE PATIENT OBSERVATION] .TO ADMISSION 11/21/24 21:10 Active MEDSURG (MONITORED BED) ACTIVITY .Early Mobilization for VTE Prevention CARE 11/21/24 21:17 Active GIVE HS SNACK 2100 CARE 11/21/24 21:18 Active INTAKE & OUTPUT Q8HR CARE 11/21/24 21:17 Active NPO REMINDER: IMAGING ONCE CARE 11/21/24 19:23 Completed TELEMETRY MONITORING TELE CARE 11/21/24 21:10 Active VITAL SIGNS Q4HR CARE 11/21/24 21:17 Active ADA 1800 JOSE. DIET DIETARY 11/22/24 Breakfast Ordered HS SNACK DIETARY 11/21/24 Dinner Ordered ED APPLY O2 .ONCE EMERGENCY 11/21/24 19:23 Active ED AUTO PAINTER APPLIED .ONCE EMERGENCY 11/21/24 19:23 Active ED IV/MEDIPORT/POWERPORT .ONCE EMERGENCY 11/21/24 19:23 Active ED VITAL SIGNS .ONCE EMERGENCY 11/21/24 19:23 Active BLOOD CULTURE (ED ONLY) Stat LAB 11/21/24 19:32 Received CBC W/ AUTO DIFF DAILY@0600 LAB 11/22/24 05:13 Completed CBC W/ AUTO DIFF DAILY@0600 LAB 11/23/24 06:00 Ordered CBC W/ AUTO DIFF Stat LAB 11/21/24 18:15 Completed CMP [COMPREHENSIVE METABOLIC PANEL] Stat LAB 11/21/24 18:15 Completed COMPREHENSIVE METABOLIC PANEL DAILY@0600 LAB 11/22/24 05:13 Completed COMPREHENSIVE METABOLIC PANEL DAILY@0600 LAB 11/23/24 06:00 Ordered COVID [SARS COV-2 RNA RAPID ENE] Stat LAB 11/21/24 Uncollected ESR Stat LAB 11/21/24 19:32 Completed FLU A & B MOLECULAR [FLU A/B MOLECULAR] Stat LAB 11/21/24 21:06 Uncollected LACTIC ACID Stat LAB 11/21/24 19:32 Completed LEGIONELLA URINARY ANTIGEN Routine LAB 11/21/24 21:17 Uncollected MAGNESIUM Stat LAB 11/21/24 19:32 Completed MRSA SCREEN Routine LAB 11/21/24 19:23 Uncollected PROCALCITONIN DAILY LAB 11/22/24 05:13 Completed PROCALCITONIN DAILY LAB 11/23/24 06:00 Ordered PROCALCITONIN Stat LAB 11/21/24 19:32 Completed PT WITH INR Stat LAB 11/21/24 19:32 Completed RSV Stat LAB 11/21/24 21:06 Uncollected SPUTUM CULTURE Routine LAB 11/21/24 21:17 Uncollected STREP PNEUMO AG, URINE Routine LAB 11/21/24 21:17 Ordered URINALYSIS C & S IF INDICATED Stat LAB 11/21/24 17:06 Uncollected 0.9 % Sodium Chloride [Saline Flush] Meds 11/21/24 19:22 Active 1 syr IVF PRN PRN Acetaminophen [Tylenol] Meds 11/21/24 19:22 Discontinued 650 mg PO ONCE STA Acetaminophen [Tylenol] Meds 11/21/24 21:17 Active 650 mg PO Q4H PRN Azithromycin [Zithromax] Meds 11/21/24 21:17 Discontinued 500 mg PO ONCE ONE Ceftriaxone/D5w 1 gm Premix [Rocephin 1 gm/50 ml D5w] Meds 11/22/24 09:00 Active 1 gm in 50 ml IV DAILY Insulin Regular, Human [Humulin R (10Ml)] Meds 11/21/24 21:23 Active See Protocol SUBCUT PRN PRN Iodixanol [Visipaque 320 mg/ml 100Ml] Meds 11/21/24 20:08 Discontinued 100 ml IVP ONCE ONE Levofloxacin/D5w [Levaquin 750 mg/150 ml D5w] Meds 11/21/24 19:22 Discontinued 750 mg in 150 ml IV ONCE Nystatin [Nystop Powder] Meds 11/21/24 22:00 Active 1 applic TP TID Piperacillin Sodium/Tazobactam [Zosyn 4.5 gm] 4.5 gm Meds 11/21/24 19:22 Discontinued 0.9 % Sodium Chloride [Sodium Chloride 100Ml] 100 ml IV ONCE Sodium Chloride 0.9% [Sodium Chloride] 1,000 ml Meds 11/21/24 21:30 Active IV 75 mls/hr Sodium Chloride 0.9% [Sodium Chloride] 1,000 ml Meds 11/21/24 19:22 Discontinued IV BOLUS CHEST, 1V AP ONLY Stat RADS 11/21/24 19:[address] ABDOMEN/PELVIS W CONTRAST Stat RADS 11/21/24 19:22 Completed Medications Generic Name Dose Route Start Last Admin Trade Name Essie PRN Reason Stop Dose Admin Acetaminophen 650 mg 11/21/24 21:17 Acetaminophen 325 Mg Tablet PO Q4H PRN Mild Pain CEFTRIAXONE/D5W 1 GM PREMIX 1 gm in 50 mls @ 100 mls/hr 11/22/24 09:00 Rocephin 1 Gm/50 Ml D5w IV 11/25/24 08:59 DAILY LANA Sodium Chloride 1,000 mls @ 75 mls/hr 11/21/24 21:30 11/21/24 22:25 Sodium Chloride IV 75 mls/hr .[id number] LANA Administration Insulin Human Regular 0 unit 11/21/24 21:23 Insulin Regular, Human 100 Unit/Ml (10ml) Vial SUBCUT PRN PRN Hyperglycemia Protocol Nystatin 1 applic 11/21/24 22:00 11/21/24 22:50 Nystatin 15 Gm Powder TP 1 applic TID LANA Administration Sodium Chloride 1 syr 11/21/24 19:22 0.9% Sodium Chloride 10 Ml Disp.Syrin IVF PRN PRN To flush IV Discontinued Medications Generic Name Dose Route Start Last Admin Trade Name Essie PRN Reason Stop Dose Admin Acetaminophen 650 mg 11/21/24 19:22 11/21/24 20:55 Acetaminophen 325 Mg Tablet PO 11/21/24 19:23 650 mg ONCE STA Administration Azithromycin 500 mg 11/21/24 21:17 11/21/24 22:15 Azithromycin 250 Mg Tablet PO 11/21/24 21:18 Not Given ONCE ONE Sodium Chloride 1,000 mls @ 1,000 mls/hr 11/21/24 19:22 11/21/24 22:30 Sodium Chloride IV 11/21/24 20:21 Infused BOLUS ONE Infusion Piperacillin Sod/Tazobactam 100 mls @ 200 mls/hr 11/21/24 19:22 11/21/24 19:51 Sod 4.5 gm/ Sodium Chloride IV 11/21/24 19:51 200 mls/hr ONCE STA Administration Levofloxacin/Dextrose 750 mg in 150 mls @ 100 mls/hr 11/21/24 19:22 11/21/24 20:54 Levaquin 750 Mg/150 Ml D5w IV 11/21/24 20:51 100 mls/hr ONCE ONE Administration Iodixanol 100 ml 11/21/24 20:08 11/21/24 20:09 Iodixanol 320 Mg/Ml 100ml IVP 11/21/24 20:09 100 ml ONCE ONE Administration Vital Signs: Temp Pulse Resp BP Pulse Ox 11/21/24 16:47 97.3 F L 110 H 20 114/75 97 Discharge Plan Discharge Patient Disposition: ADMITTED INPATIENT Discharge Problem: Candidiasis of scrotum, Candidiasis of perineum, Diabetes mellitus type 2 in nonobese Pneumonia of both lungs Qualifiers: Pneumonia type: due to unspecified organism Lung location: unspecified part of lung Qualified Code(s): J18.9 - Pneumonia, unspecified organism Did you review [place] [employer] ANALYST for ALL controlled substances?: Not Applicable ED Provider: GRUPO AMAYA
[2024-11-21 18:25] LABS: IMMATURE GRANULOCYTE # (AUTO) 0.2 (0.0-1.0); IMMATURE GRANULOCYTE % (AUTO) 0.8 % (0.0-5.0); RDW COEFFICIENT OF VARIATION 12.7 % (11.6-14.8)
[2024-11-21 18:38] LABS: CREATININE 1.3 mg/dL (0.60-1.10)
[2024-11-21] MEDS: ZOSYN 4.5 GM 4.5 GM in SODIUM CHLORIDE 100ML 100 ML IV STA (19:51)
[2024-11-21] MEDS: SODIUM CHLORIDE 1,000 ML IV ONE (19:52)
[2024-11-21] MEDS: VISIPAQUE 320 MG/ML 100ML IVP ONE (20:09)
[2024-11-21 20:10] LABS: INR 1.15 SI (0.0-3.9)
[2024-11-21 20:23] LABS: ERYTHROCYTE SEDIMENTATION RATE 65 mm/hr (0-15)
[2024-11-21] MEDS: LEVAQUIN 750 MG/150 ML D5W 750 MG/150 ML BAG IV ONE (20:54)
[2024-11-21] MEDS: TYLENOL PO STA (20:55)
--- NOTE | 2024-11-21 20:55 | CT ---
EXAM: CT ABDOMEN AND PELVIS WITH CONTRAST HISTORY: Right flank pain. TECHNIQUE: CT acquisition of the abdomen and pelvis from the lower thorax through the pelvis following IV contrast administration. IV Contrast: Omnipaque 350. Oral Contrast: None. CT Dose Reduction Techniques Performed: Yes COMPARISON: CT abdomen pelvis 03/05/2019 FINDINGS: Liver: No mass. Normal morphology. Biliary: No biliary ductal dilation. Gallbladder is normal. Pancreas: No duct dilation. No mass. Spleen: No mass. No splenomegaly. Adrenals: No mass. Kidneys/Ureters: No mass, calculus, or hydronephrosis. GI Tract: No bowel dilation. No bowel wall thickening. Normal appendix. Descending and sigmoid diverticulosis. Endoscopic clip in the distal sigmoid colon. Peritoneal Cavity: No ascites. Retroperitoneum: No fluid collection. Lymph Nodes: No lymphadenopathy. Vasculature: Mild to moderate aortic atherosclerotic calcifications. No aortic or iliac aneurysm. Pelvis: Urinary bladder is normal. No free fluid. Bones/Soft Tissues: Mild degenerative changes of the spine. No acute fracture. Visualized soft tissues are within normal limits. Lower Thorax: Consolidations in the bilateral lower lobe, left greater than right. IMPRESSION: No acute abnormality in the abdomen or pelvis. Bilateral lower lobe consolidations, left greater than right, concerning for pneumonia. All CT scans are performed using dose optimization techniques as appropriate to the performed exam and include at least one of the following: Automated exposure control, adjustment of the mA and/or kV according to size, and the use of iterative reconstruction technique.
--- NOTE | 2024-11-21 21:16 | DI ---
EXAM: CHEST, ONE-VIEW HISTORY: Sepsis FINDINGS: Cardiac and mediastinal contours are normal. Pulmonary vasculature is normal. Increased opacity at the lateral and medial left lung base. Upper lungs are clear. Left chest wall implantable device. Bony thorax is unremarkable. IMPRESSION: Increased opacity of the medial and lateral left lung base possibly representing pneumonia.
[2024-11-21] MEDS ORDERED: TYLENOL PO PRN (21:17)
[2024-11-21] MEDS: ZITHROMAX PO ONE (22:15)
[2024-11-21] MEDS: SODIUM CHLORIDE 1,000 ML IV SCH (22:25)
[2024-11-21] MEDS: NYSTOP POWDER TP SCH (22:50)
[2024-11-22 03:35] VITALS: BMI 24.4
[2024-11-22 05:42] LABS: IMMATURE GRANULOCYTE # (AUTO) 0.2 (0.0-1.0); IMMATURE GRANULOCYTE % (AUTO) 1.1 % (0.0-5.0); RDW COEFFICIENT OF VARIATION 12.8 % (11.6-14.8)
[2024-11-22 05:54] LABS: CREATININE 1.1 mg/dL (0.60-1.10)
[2024-11-22] MEDS ORDERED: ZITHROMAX PO SCH (09:00)
[2024-11-22] MEDS: ROCEPHIN 1 GM/50 ML D5W 1 GM/50 ML BAG IV SCH (09:11)
--- NOTE | 2024-11-22 09:40 | PCM ---
Date of Service Date Seen by Provider: 11/22/24 Time Seen by Provider: 09:10 Admit Day/Time Admission Date: 11/21/24 Admission Time: 21:00 Reason for Admission Chief Complaint: BILATERAL PNEUMONIA,ELEV WBC, Hospital Provider Hospital Provider: [place] [facility] [place] Primary Care Physician: SERGIO PASTRANA History of Present Illness History of Present Illness: 64 yo male with pmh with cognitive disorder, DM2, seizures, GERD, HTN, and impaired mobility presented to the ER from [facility] for right-sided back pain. Patient unable to provide HPI due to cognitive disorder. Per ER provider, the patient was sent here from PCP office due to complaints. Also noted to have significant yeast infection to groin area and patient has been itching his scrotum constantly. No report of other symptoms. Patient was found to have bilateral pneumonia, white count of 20, and procal of 1.2. Blood cultures obtained. IV fluids and antibiotics given. Admitted med/surg observation. Per [facility] staff "Patient is functional but since mom's has refused to get out of the wheelchair and has been doing less and less to assist with his own ADLs." Case Discussed With Case Discussed With: Patient's case was discussed with the ER Physicians, Dr. Loya. [facility] Medical History Anxiety (07/05/20) F41.9 - Anxiety disorder, unspecified (ICD-10) Disturbance in sleep behavior (07/05/20) G47.9 - Sleep disorder, unspecified (ICD-10) Gastroesophageal reflux disease (07/05/20) K21.9 - Gastro-esophageal reflux disease without esophagitis (ICD-10) Hypercholesterolemia (07/05/20) E78.00 - Pure hypercholesterolemia, unspecified (ICD-10) Hypertensive disorder (07/05/20) I10 - Essential (primary) hypertension (ICD-10) Impaired mobility (08/05/20) Z74.09 - Other reduced mobility (ICD-10) Seasonal allergies (07/05/20) J30.2 - Other seasonal allergic rhinitis (ICD-10) Seizure disorder (08/05/20) G40.909 - Epilepsy, unspecified, not intractable, without status epilepticus (ICD-10) Type 2 diabetes mellitus (07/05/20) E11.9 - Type 2 diabetes mellitus without complications (ICD-10) Social History Smoking and tobacco status: Never smoker Allergies Allergies Allergy/AdvReac Type Severity Reaction Status Date / Time Latex, Natural Rubber AdvReac Verified 11/21/24 19:12 Current Medications Home Medications Acetaminophen (Acetaminophen 325 Mg Tablet) 650 mg PO Q4H PRN PRN Reason: Mild Pain Aspirin (Aspirin 81 Mg Tab.Chew) 81 mg PO DAILYWM2 [facility] Last Admin: 11/22/24 10:07 Dose: 81 mg Atorvastatin Calcium (Atorvastatin Calcium 10 Mg Tablet) 10 mg PO BEDTIME [facility] Azithromycin (Azithromycin 250 Mg Tablet) 500 mg PO BEDTIME [facility] Stop: 11/23/24 21:01 Cholecalciferol (Cholecalciferol (Vitamin D3) 1,000 Unit (25 Mcg) Tablet) 1,000 unit PO BID [facility] Last Admin: 11/22/24 09:43 Dose: 1,000 unit Empagliflozin (Empagliflozin 10 Mg Tablet) 25 mg PO DAILY [facility] Last Admin: 11/22/24 09:44 Dose: 25 mg Enoxaparin Sodium (Enoxaparin Sodium 40 Mg/0.4 Ml Syr) 40 mg SUBCUT DAILY [facility] Last Admin: 11/22/24 11:10 Dose: 40 mg Fenofibrate (Fenofibrate 160 Mg Tablet) 160 mg PO BEDTIME [facility] Finasteride (Finasteride 5 Mg Tablet) 5 mg PO DAILY [facility] Last Admin: 11/22/24 09:42 Dose: 5 mg Folic Acid (Folic Acid 1 Mg Tablet) 1 mg PO DAILY [facility] Last Admin: 11/22/24 09:43 Dose: 1 mg CEFTRIAXONE/D5W 1 GM PREMIX (Rocephin 1 Gm/50 Ml D5w) 1 gm in 50 mls @ 100 mls/hr IV DAILY [facility] Stop: 11/25/24 08:59 Last Admin: 11/22/24 09:11 Dose: 100 mls/hr Sodium Chloride (Sodium Chloride) 1,000 mls @ 75 mls/hr IV .[id number] [facility] Last Admin: 11/21/24 22:25 Dose: 75 mls/hr Insulin Human Regular (Insulin Regular, Human 100 Unit/Ml (10ml) Vial) 0 unit SUBCUT PRN PRN; Protocol PRN Reason: Hyperglycemia Levetiracetam (Levetiracetam 500 Mg Tablet) 750 mg PO BEDTIME [facility] Levetiracetam (Levetiracetam 500 Mg Tablet) 1,000 mg PO DAILY [facility] Last Admin: 11/22/24 09:43 Dose: 1,000 mg Magnesium Oxide (Magnesium Oxide 400 Mg Tablet) 400 mg PO TID [facility] Last Admin: 11/22/24 09:42 Dose: 400 mg Non-Formulary Medication (Guanfacine) 1 mg PO BEDTIME [facility] Non-Formulary Medication (Cariprazine [Vraylar]) 3 mg PO DAILY [facility] Non-Formulary Medication (Divalproex) 500 mg PO BID [facility] Nystatin (Nystatin 15 Gm Powder) 1 applic TP TID [facility] Last Admin: 11/22/24 09:14 Dose: 1 applic Omeprazole (Omeprazole 20 Mg Capsule.Dr) 20 mg PO QDAC2 [facility] Last Admin: 11/22/24 10:10 Dose: 20 mg Saccharomyces Boulardii (Saccharomyces Boulardii 250 Mg Capsule) 250 mg PO BID [facility] Last Admin: 11/22/24 10:04 Dose: 250 mg Sodium Chloride (0.9% Sodium Chloride 10 Ml Disp.Syrin) 1 syr IVF PRN PRN PRN Reason: To flush IV Tamsulosin HCl (Tamsulosin Hcl 0.4 Mg Cap.Er.24h) 0.4 mg PO BEDTIME [facility] Venlafaxine HCl (Venlafaxine Hcl 75 Mg Cap.Er.24h) 75 mg PO DAILY [facility] Last Admin: 11/22/24 09:43 Dose: 75 mg aspirin 81 mg chewable tablet 81 mg PO DAILYWM 06/23/14 [History Confirmed 11/22/24] atorvastatin 10 mg tablet 10 mg PO BEDTIME 06/23/14 [History Confirmed 11/22/24] cholecalciferol (vitamin D3) 25 mcg (1,000 unit) capsule (Vitamin D3) 1,000 unit PO BID 06/23/14 [History Confirmed 11/22/24] fenofibrate micronized 200 mg capsule 200 mg PO BEDTIME 06/23/14 [History Confirmed 11/22/24] folic acid 1 mg tablet 1 mg PO DAILY 06/23/14 [History Confirmed 11/22/24] levetiracetam 1,000 mg tablet (Keppra) 1,000 mg PO DAILY 06/23/14 [History Confirmed 11/22/24] magnesium oxide 400 mg PO TID 06/23/14 [History Confirmed 11/22/24] cyanocobalamin (vitamin B-12) 2,500 mcg tablet 1,000 mcg PO DAILY 06/19/16 [History Confirmed 11/21/24] acetaminophen 325 mg tablet 650 mg PO Q4H PRN Analgesia 08/21/16 [History Confirmed 11/21/24] calcium carbonate 600 mg PO BID 03/05/19 [History Confirmed 11/22/24] finasteride 5 mg tablet 5 mg PO DAILY 03/05/19 [History Confirmed 11/22/24] tamsulosin 0.4 mg capsule 0.4 mg PO BEDTIME 03/05/19 [History Confirmed 11/22/24] divalproex 500 mg tablet,extended release 24 hr 500 mg PO BID 07/27/23 [History Confirmed 11/22/24] dulaglutide 1.5 mg/0.5 mL subcutaneous pen injector (Trulicity) 3 mg subcut .once per week 07/27/23 [History Confirmed 11/21/24] empagliflozin 25 mg tablet (Jardiance) 25 mg PO DAILY 07/27/23 [History Confirmed 11/22/24] guanfacine 1 mg tablet,extended release 24 hr 1 mg PO DAILY 07/27/23 [History Confirmed 11/22/24] levetiracetam 750 mg tablet 750 mg PO .daily 07/27/23 [History Confirmed 11/22/24] omeprazole 20 mg capsule,delayed release 20 mg PO DAILY 07/27/23 [History Confirmed 11/22/24] venlafaxine 75 mg capsule,extended release 24 hr 75 mg PO DAILY 07/27/23 [History Confirmed 11/22/24] dextromethorphan-guaifenesin 10 mg-100 mg/5 mL oral syrup (Robafen DM Cough- Chest Congestion) 10 ml PO Q6H PRN cough/congestion 09/04/23 [History Confirmed 11/22/24] cariprazine 3 mg capsule (Vraylar) 3 mg PO DAILY 11/21/24 [History Confirmed 11/22/24] Opioid Naive vs. Tolerant Does Patient Take Opioids?: No Is Patient Opioid Naive?: Yes What is Opioid Naive?: *Opioid Naive implies the patient is not already taking opioids or not chronically receiving opioids on a daily basis. *PRN dosing is not "usually" associated with tolerance. *Patients are at higher risk of over-sedation and aspiration. Is Patient Opioid Tolerant?: No What is Opioid Tolerant?: *Opioid Tolerance implies less than the expected response to an opioid. *Acquired tolerance is defined by the patient taking 60mg of oral morphine daily (or equianalgesic dose of another opioid) for 1 week or more. *Often associated with chronic pain. *May take more than usual dose to achieve desired pain control. Review of Systems Constitutional: Reports No symptoms Head: Reports Normocephalic Eyes: Reports No symptoms Ears: Reports No symptoms Nose: Reports No symptoms Mouth: Reports No symptoms Throat: Reports No symptoms Cardiovascular: Reports No symptoms Respiratory: Reports No symptoms Gastrointestinal: Reports No symptoms Genitourinary: Reports No Symptoms Musculoskeletal: Reports Back Pain Endocrine: Reports No symptoms Hematology: Reports No symptoms Immunology: Reports No symptoms Neurological: Reports No symptoms Psychiatric: Reports No symptoms Physical examination Most Recent Vital Signs: Most Recent Vital Signs Temperature 97.5 F L 11/22/24 05:14 Temperature Source Temporal Artery Scan 11/22/24 05:14 Temperature Source Temporal Artery Scan 11/21/24 16:47 Pulse Rate 84 11/22/24 05:14 Respiratory Rate 18 11/22/24 05:14 Blood Pressure 135/86 11/22/24 05:14 Blood Pressure Mean 102 11/22/24 05:14 Blood Pressure Right Arm 104/78 11/21/24 22:45 Blood Pressure Location Right Arm 11/22/24 05:14 Blood Pressure Position Supine 11/22/24 05:14 O2 Sat by Pulse Oximetry 90 L 11/22/24 05:14 Oxygen Delivery Method Room Air 11/22/24 09:00 Height 5 ft 9 in 11/21/24 22:45 Weight 75 kg 11/21/24 22:45 Telemetry Type Remote Telemetry 11/22/24 01:00 Telemetry Monitoring Continues 11/22/24 01:00 Telemetry Heart Rate 84 11/22/24 01:00 Telemetry SPO2 96 11/22/24 01:00 EKG SC Interval 0.18 11/22/24 01:00 EKG QRS Interval 0.10 11/22/24 01:00 Telemetry Strip Reading SR 11/22/24 01:00 Appearance: Positive No Apparent Distress Skin: Positive Warm and Good Turgor HEENT: Positive Normocephalic and PERRLA Neck: Positive Supple and Midline Trachea Chest/Lungs: Positive Symmetrical With Equal Breath Sounds and Clear to Auscultation Bilaterally (diminished) Heart: Positive RRR, Pulses Normal and Murmur GI/: Positive Soft, Nontender, Bowel Sounds Normal and No Distention Musculoskeletal: Positive Not Examined Extremities: Positive Contractures, Intact Peripheral Pulses, Stable Joints Without Laxity and Good ROM in All Joints Neurological: Positive Sensation Intact, Motor intact, Reflexes Intact, Alert and Disorinted (to baseline mental status) Labs This Visit Labs This Visit: Labs This Visit 11/21/24 11/21/24 11/22/24 18:15 19:32 05:13 WBC 20.18 H D 17.43 H RBC 4.45 L 3.81 L Hgb 14.4 12.4 L Hct 45.5 39.1 L D MCV 102.2 H 102.6 H MCH 32.4 H 32.5 H MCHC 31.6 L 31.7 L RDW Coeff of Thiago 12.7 12.8 Plt Count 321 299 Immature Gran % (Auto) 0.8 1.1 Neut % (Auto) 79.9 H 75.6 H Lymph % (Auto) 9.9 L 12.0 Dane % (Auto) 8.8 10.2 H Eos % (Auto) 0.3 0.8 Baso % (Auto) 0.3 0.3 Neut # (Auto) 16.1 H 13.2 H Lymph # (Auto) 2.0 2.1 Dane # (Auto) 1.8 1.8 Eos # (Auto) 0.1 0.1 Baso # (Auto) 0.1 0.1 Immature Gran # (Auto) 0.2 0.2 ESR 65 H PT 11.9 H INR 1.15 Sodium 136.6 136.3 Potassium 4.47 4.02 Chloride 93.7 L 96.4 L Carbon Dioxide 30.0 30.7 H Anion Gap 17.37 13.22 BUN 38.7 H 28.6 H Creatinine 1.30 H 1.10 Estimated GFR (MDRD) 55.00 67.00 BUN/Creatinine Ratio 29.76 26.00 Glucose 380.1 H 170.8 H D Lactic Acid 1.23 Calcium 9.65 8.57 Magnesium 2.01 Total Bilirubin 0.84 0.86 AST 34.1 35.8 ALT 17.4 14.5 Alkaline Phosphatase 73.2 55.2 L Total Protein 8.50 H 7.40 Albumin 3.83 3.25 L Globulin 4.67 4.15 Albumin/Globulin Ratio 0.82 0.78 Procalcitonin 1.20 H 0.94 H Imaging Imaging: EXAM: CT ABDOMEN AND PELVIS WITH CONTRAST HISTORY: Right flank pain. TECHNIQUE: CT acquisition of the abdomen and pelvis from the lower thorax through the pelvis following IV contrast administration. IV Contrast: Omnipaque 350. Oral Contrast: None. CT Dose Reduction Techniques Performed: Yes COMPARISON: CT abdomen pelvis 03/05/2019 FINDINGS: Liver: No mass. Normal morphology. Biliary: No biliary ductal dilation. Gallbladder is normal. Pancreas: No duct dilation. No mass. Spleen: No mass. No splenomegaly. Adrenals: No mass. Kidneys/Ureters: No mass, calculus, or hydronephrosis. GI Tract: No bowel dilation. No bowel wall thickening. Normal appendix. Descending and sigmoid diverticulosis. Endoscopic clip in the distal sigmoid colon. Peritoneal Cavity: No ascites. Retroperitoneum: No fluid collection. Lymph Nodes: No lymphadenopathy. Vasculature: Mild to moderate aortic atherosclerotic calcifications. No aortic or iliac aneurysm. Pelvis: Urinary bladder is normal. No free fluid. Bones/Soft Tissues: Mild degenerative changes of the spine. No acute fracture. Visualized soft tissues are within normal limits. Lower Thorax: Consolidations in the bilateral lower lobe, left greater than right. IMPRESSION: No acute abnormality in the abdomen or pelvis. Bilateral lower lobe consolidations, left greater than right, concerning for pneumonia. Review Statement Review Statement: I have independently reviewed and interpreted the labs/EKGs/imaging that were ordered by the ER provider. I have reviewed all outside records that are available currently in our EMR including imaging/notes/labs from previous visits. Plan Plan: 1. Sepsis in setting of CAP - blood cultures pending, IV fluids, and abx initiated, trend procal 2. Community Acquired Pneumonia - rocephin and azith, mrsa, strep pneumo, legionella, and sputum ordered 3. Candidiasis to scrotum - nystatin TID, diflucan x 1 4. DM2 - accuchecks qid with ssi, continue jardiance, 1800 ADA diet 5. HTN - chronic, continue home medications 6. Seizures - chronic, continue home medications DVT Prophylaxis: Lovenox Time Spent: Greater than 80 minutes spent with patient, 50% of the time spent with this patient was devoted to counseling and coordination of care. [facility] minutes spent discussing advance care planning. Disposition: Admit to: Med/Surg Observation Full Code Discussed Plan of Care with Dr. Erick Centeno. Medications Medication Orders: Medications Ordered Category Date Time Status 0.9 % Sodium Chloride [Saline Flush] Meds 11/21/24 19:22 Active 1 syr IVF PRN PRN Acetaminophen [Tylenol] Meds 11/21/24 21:17 Active 650 mg PO Q4H PRN Aspirin [Aspirin Chewable] Meds 11/22/24 09:30 Active 81 mg PO DAILYWM2 Atorvastatin Calcium [Lipitor] Meds 11/22/24 21:00 Active 10 mg PO BEDTIME Azithromycin [Zithromax] Meds 11/22/24 21:00 Active 500 mg PO BEDTIME Ceftriaxone/D5w 1 gm Premix [Rocephin 1 gm/50 ml D5w] Meds 11/22/24 09:00 Active 1 gm in 50 ml IV DAILY Cholecalciferol (Vitamin D3) [Vitamin D] Meds 11/22/24 09:00 Active 1,000 unit PO BID Empaglifozin [Jardiance] Meds 11/22/24 09:00 Active 25 mg PO DAILY Fenofibrate [Triglide] Meds 11/22/24 21:00 Active 160 mg PO BEDTIME Finasteride [Proscar] Meds 11/22/24 09:00 Active 5 mg PO DAILY Fluconazole [Diflucan] Meds 11/22/24 09:39 Once 150 mg PO ONCE ONE Folic Acid Meds 11/22/24 09:00 Active 1 mg PO DAILY Insulin Regular, Human [Humulin R (10Ml)] Meds 11/21/24 21:23 Active See Protocol SUBCUT PRN PRN Levetiracetam [Keppra] Meds 11/22/24 09:00 Active 1,000 mg PO DAILY Levetiracetam [Keppra] Meds 11/22/24 21:00 Active 750 mg PO BEDTIME Magnesium Oxide [Mag-Ox] Meds 11/22/24 09:00 Active 400 mg PO TID Nystatin [Nystop Powder] Meds 11/21/24 22:00 Active 1 applic TP TID Omeprazole [Prilosec] Meds 11/22/24 09:00 Active 20 mg PO QDAC2 Saccharomyces Boulardii [Florastor] Meds 11/22/24 09:40 Ordered 250 mg PO BID Sodium Chloride 0.9% [Sodium Chloride] 1,000 ml Meds 11/21/24 21:30 Active IV 75 mls/hr Tamsulosin HCl [Flomax] Meds 11/22/24 21:00 Active 0.4 mg PO BEDTIME Venlafaxine HCl [Effexor Xr] Meds 11/22/24 09:00 Active 75 mg PO DAILY cariprazine [Vraylar] Meds 11/22/24 09:00 Active 3 mg PO DAILY divalproex Meds 11/22/24 09:00 Active 500 mg PO BID guanfacine Meds 11/22/24 21:00 Active 1 mg PO BEDTIME
[2024-11-22] MEDS: MAG-OX PO SCH (09:42)
[2024-11-22] MEDS: PROSCAR PO SCH (09:42)
[2024-11-22] MEDS: VITAMIN D PO SCH (09:43)
[2024-11-22] MEDS: FOLIC ACID PO SCH (09:43)
[2024-11-22] MEDS: EFFEXOR XR PO SCH (09:43)
[2024-11-22] MEDS: KEPPRA PO SCH ×2 (09:43→20:51)
[2024-11-22] MEDS: JARDIANCE PO SCH (09:44)
[2024-11-22 09:53] LABS: MOLECULAR FLU A NEGATIVE BY NAAT (NEGATIVE); MOLECULAR FLU B NEGATIVE BY NAAT (NEGATIVE)
[2024-11-22] MEDS: DIFLUCAN PO ONE (10:03)
[2024-11-22] MEDS: FLORASTOR PO SCH (10:04)
[2024-11-22] MEDS: ASPIRIN CHEWABLE PO SCH (10:07)
[2024-11-22] MEDS: PRILOSEC PO SCH (10:10)
[2024-11-22 10:11] LABS: RSV MOLECULAR NEGATIVE BY NAAT (NEGATIVE)
[2024-11-22] MEDS: LOVENOX SUBCUT SCH (11:10)
[2024-11-22] MEDS: HUMULIN R (10ML) SUBCUT PRN (11:18)
[2024-11-22 15:23] LABS: LEUKOCYTE ESTERASE ,URINE 1+ (NEGATIVE); URINE, BLOOD 1+ (NEGATIVE)
[2024-11-22 15:25] LABS: GLUCOSE, URINE (UA) 3+ (NEGATIVE)
[2024-11-22] MEDS: ZITHROMAX PO SCH (20:49)
[2024-11-22] MEDS: FLOMAX PO SCH (20:50)
[2024-11-22] MEDS: TRIGLIDE PO SCH (20:50)
[2024-11-22] MEDS: LIPITOR PO SCH (20:50)
[2024-11-22] MEDS: GUANFACINE 1 MG PO SCH (20:54)
[2024-11-23 05:31] VITALS: PULSE 78
[2024-11-23 05:38] LABS: IMMATURE GRANULOCYTE # (AUTO) 0.2 (0.0-1.0); IMMATURE GRANULOCYTE % (AUTO) 1.3 % (0.0-5.0); RDW COEFFICIENT OF VARIATION 12.7 % (11.6-14.8)
[2024-11-23 05:57] LABS: CREATININE 0.9 mg/dL (0.60-1.10)
--- NOTE | 2024-11-23 10:03 | DCSUM ---
Admission Date Admission Date: 11/21/24 Discharge Date Discharge Date: 11/23/24 Admission Diagnosis Admission Diagnosis: 1. Sepsis in setting of CAP 2. Community Acquired Pneumonia 3. Candidiasis to scrotum 4. DM2 5. HTN 6. Seizures Discharge Diagnosis Discharge Diagnosis: 1. Sepsis in setting of CAP - ruled out 2. Community Acquired Pneumonia - improving 3. Candidiasis to scrotum - nystatin TID, diflucan x 1 4. DM2 - chronic, stable 5. HTN - chronic, stable 6. Seizures - chronic, stable Hospital Provider Hospital Provider: [place], [facility] Primary Care Physician Primary Care Physician: SERGIO PASTRANA Summary of History and Physical Summary of History and Physical: 64 yo male with pmh with cognitive disorder, DM2, seizures, GERD, HTN, and impaired mobility presented to the ER from [facility] for right-sided back pain. Patient unable to provide HPI due to cognitive disorder. Per ER provider, the patient was sent here from PCP office due to complaints. Also noted to have significant yeast infection to groin area and patient has been itching his scrotum constantly. No report of other symptoms. Patient was found to have bilateral pneumonia, white count of 20, and procal of 1.2. Blood cultures obtained. IV fluids and antibiotics given. Admitted med/surg observation. Per [facility] staff "Patient is functional but since mom's has refused to get out of the wheelchair and has been doing less and less to assist with his own ADLs." Hospital Course Subjective: During stay, sepsis was ruled out. Blood cultures were found to be negative. Received IV fluids. Treated community acquired pneumonia with rocephin and azith. Sent to rx for rest of course of azith which finishes today, and 5 days of augmentin for 7 day course. Significant candidiasis to scrotum treated with diflucan and started on nystatin TID. Procalcitonin has trended down. White count has trended down. No fever or tachycardia during stay. Has not required oxygen. Patient at baseline mental status. D/c back to [facility] today. Appearance: Pleasant, No Apparent Distress and Alert HEENT: MMM, Supple and No JVD CVS: No Murmur, No Rubs and No Gallop Abdomen: Soft, Non-Tender and No Distention Respiratory: No Dyspnea Extremities: No Edema Vital Signs: Most Recent Vital Signs Temperature 97.5 F L 11/23/24 05:29 Temperature Source Temporal Artery Scan 11/23/24 05:29 Temperature Source Temporal Artery Scan 11/21/24 16:47 Pulse Rate 78 11/23/24 05:29 Respiratory Rate 18 11/23/24 05:29 Blood Pressure 117/74 11/23/24 05:29 Blood Pressure Mean 88 11/23/24 05:29 Blood Pressure Right Arm 104/78 11/21/24 22:45 Blood Pressure Location Right Arm 11/23/24 05:29 Blood Pressure Position Supine 11/23/24 05:29 O2 Sat by Pulse Oximetry 93 L 11/23/24 05:29 Oxygen Delivery Method Room Air 11/23/24 09:00 Height 5 ft 9 in 11/21/24 22:45 Weight 75 kg 11/21/24 22:45 Telemetry Type Remote Telemetry 11/23/24 01:00 Telemetry Monitoring Continues 11/23/24 01:00 Telemetry Heart Rate 82 11/23/24 01:00 Telemetry SPO2 95 11/23/24 01:00 EKG TX Interval 0.15 11/23/24 01:00 EKG QRS Interval 0.10 11/23/24 01:00 Telemetry Strip Reading SR 11/23/24 01:00 Imaging: EXAM: CT ABDOMEN AND PELVIS WITH CONTRAST HISTORY: Right flank pain. TECHNIQUE: CT acquisition of the abdomen and pelvis from the lower thorax through the pelvis following IV contrast administration. IV Contrast: Omnipaque [id number]. Oral Contrast: None. CT Dose Reduction Techniques Performed: Yes COMPARISON: CT abdomen pelvis 03/05/2019 FINDINGS: Liver: No mass. Normal morphology. Biliary: No biliary ductal dilation. Gallbladder is normal. Pancreas: No duct dilation. No mass. Spleen: No mass. No splenomegaly. Adrenals: No mass. Kidneys/Ureters: No mass, calculus, or hydronephrosis. GI Tract: No bowel dilation. No bowel wall thickening. Normal appendix. Descending and sigmoid diverticulosis. Endoscopic clip in the distal sigmoid colon. Peritoneal Cavity: No ascites. Retroperitoneum: No fluid collection. Lymph Nodes: No lymphadenopathy. Vasculature: Mild to moderate aortic atherosclerotic calcifications. No aortic or iliac aneurysm. Pelvis: Urinary bladder is normal. No free fluid. Bones/Soft Tissues: Mild degenerative changes of the spine. No acute fracture. Visualized soft tissues are within normal limits. Lower Thorax: Consolidations in the bilateral lower lobe, left greater than right. IMPRESSION: No acute abnormality in the abdomen or pelvis. Bilateral lower lobe consolidations, left greater than right, concerning for pneumonia. Lab Results Last 24 Hours: 11/23/24 11/22/24 11/22/24 05:02 15:12 09:50 WBC 11.20 H D RBC 3.48 L Hgb 11.3 L Hct 35.2 L MCV 101.1 H MCH 32.5 H MCHC 32.1 RDW Coeff of Thiago 12.7 Plt Count 320 Immature Gran % (Auto) 1.3 Neut % (Auto) 63.2 Lymph % (Auto) 24.0 Mower % (Auto) 9.1 Eos % (Auto) 1.9 Baso % (Auto) 0.5 Neut # (Auto) 7.1 H Lymph # (Auto) 2.7 Mower # (Auto) 1.0 Eos # (Auto) 0.2 Baso # (Auto) 0.1 Immature Gran # (Auto) 0.2 Sodium 138.4 Potassium 3.72 Chloride 101.5 Carbon Dioxide 30.3 H Anion Gap 10.32 BUN 25.0 H Creatinine 0.90 Estimated GFR (MDRD) 85.00 BUN/Creatinine Ratio 27.77 Glucose 185.2 H Calcium 8.54 Total Bilirubin 0.46 AST 33.9 ALT 16.6 Alkaline Phosphatase 56.0 Total Protein 6.79 Albumin 2.99 L Globulin 3.80 Albumin/Globulin Ratio 0.78 Procalcitonin 0.64 H Urine Color Yellow Urine Clarity Clear Urine pH 5.5 Ur Specific [place] 1.010 Urine Protein Negative Urine Glucose (UA) 3+ H Urine Ketones Trace H Urine Blood 1+ H Urine Nitrite Negative Urine Bilirubin Negative Urine Urobilinogen 0.2 Ur Leukocyte Esterase 1+ H Urine Microscopic RBC 2-5 Urine Microscopic WBC 2-5 Ur Squamous Epith Cells 2-5 RSV Antigen Negative by naat Discharge Instructions Discharge Planning: Discharge Planning > 40 minutes If patient is discharged with left ventricular systolic dysfunction: na Discharged with a beta tenisha? [] If no, why not? [] Discharged with an mary/arb? [] If no, why not? [] Discharge Medications: Medications at Discharge (Home Meds & RX) aspirin 81 mg chewable tablet 81 mg PO DAILYWM 06/23/14 atorvastatin 10 mg tablet 10 mg PO BEDTIME 06/23/14 cholecalciferol (vitamin D3) 25 mcg (1,000 unit) capsule (Vitamin D3) 1,000 unit PO BID 06/23/14 fenofibrate micronized 200 mg capsule 200 mg PO BEDTIME 06/23/14 folic acid 1 mg tablet 1 mg PO DAILY 06/23/14 levetiracetam 1,000 mg tablet (Keppra) 1,000 mg PO DAILY 06/23/14 magnesium oxide 400 mg PO TID 06/23/14 cyanocobalamin (vitamin B-12) 2,500 mcg tablet 1,000 mcg PO DAILY 06/19/16 acetaminophen 325 mg tablet 650 mg PO Q4H PRN Analgesia 08/21/16 calcium carbonate 600 mg PO BID 03/05/19 finasteride 5 mg tablet 5 mg PO DAILY 03/05/19 tamsulosin 0.4 mg capsule 0.4 mg PO BEDTIME 03/05/19 divalproex 500 mg tablet,extended release 24 hr 500 mg PO BID 07/27/23 dulaglutide 1.5 mg/0.5 mL subcutaneous pen injector (Trulicity) 3 mg subcut .once per week 07/27/23 empagliflozin 25 mg tablet (Jardiance) 25 mg PO DAILY 07/27/23 guanfacine 1 mg tablet,extended release 24 hr 1 mg PO DAILY 07/27/23 levetiracetam 750 mg tablet 750 mg PO .daily 07/27/23 omeprazole 20 mg capsule,delayed release 20 mg PO DAILY 07/27/23 venlafaxine 75 mg capsule,extended release 24 hr 75 mg PO DAILY 07/27/23 dextromethorphan-guaifenesin 10 mg-100 mg/5 mL oral syrup (Robafen DM Cough- Chest Congestion) 10 ml PO Q6H PRN cough/congestion 09/04/23 cariprazine 3 mg capsule (Vraylar) 3 mg PO DAILY 11/21/24 Saccharomyces boulardii 250 mg capsule (Florastor) 250 mg PO BID #10 caps 11/23/24 amoxicillin 875 mg-potassium clavulanate 125 mg tablet 1 tab PO BID #10 tabs 11/23/24 azithromycin 500 mg tablet 500 mg PO DAILY #1 tab 11/23/24 nystatin 100,000 unit/gram topical powder (Nystop) 1 applic topical TID #60 grams 11/23/24 Discharge Plan Discharge Discharge Orders: Discharge Patient (ONCE); Ordered 11/23/24 Ordered By: EVERT SHIELDS Activity Restrictions/Additional Instructions: Diagnosis: Community Acquired Pneumonia, Candidiasis of scrotum Diet: Diabetic Activity: as tolerated Medications: * Augmentin 875mg - take twice a day for 5 days, start tonight * Azithromycin 500 mg - last dose at bedtime * Florastor - twice a day for 5 days * Nystatin powder - apply to scrotum 3 times a day for yeast Follow-up with PCP Instructions: Community Acquired Pneumonia (GEN) Patient Disposition: TRANSFER [facility] Prescriptions: New nystatin [Nystop] 100,000 unit/gram Powder 1 applic topical TID Qty: 60 0RF Saccharomyces boulardii [Florastor] 250 mg Capsule 250 mg PO BID Qty: 10 0RF amoxicillin-pot clavulanate 875-125 mg tablet 1 tab PO BID Qty: 10 0RF azithromycin 500 mg tablet 500 mg PO DAILY Qty: 1 0RF Rx Instructions: Take at bedtime Continued atorvastatin 10 MG tablet 10 mg PO BEDTIME fenofibrate micronized 200 MG capsule 200 mg PO BEDTIME aspirin 81 MG tablet,chewable 81 mg PO DAILYWM folic acid 1 MG tablet 1 mg PO DAILY cholecalciferol (vitamin D3) [Vitamin D3] 1,000 UNIT capsule 1,000 unit PO BID levetiracetam [Keppra] 1,000 MG tablet 1,000 mg PO DAILY magnesium oxide 400 MG capsule 400 mg PO TID cyanocobalamin (vitamin B-12) 2,500 MCG tablet 1,000 mcg PO DAILY calcium carbonate 600 mg calcium (1,500 mg) Tablet 600 mg PO BID tamsulosin 0.4 mg Capsule 0.4 mg PO BEDTIME finasteride 5 mg Tablet 5 mg PO DAILY dextromethorphan-guaifenesin [Robafen DM Cough-Chest Congest] 10-100 mg/5 mL syrup 10 ml PO Q6H PRN (Reason: cough/congestion ) Vraylar 3 mg capsule 3 mg PO DAILY acetaminophen 325 MG tablet 650 mg PO Q4H PRN (Reason: Analgesia) venlafaxine 75 mg capsule,extended release 24hr 75 mg PO DAILY guanfacine 1 mg tablet extended release 24 hr 1 mg PO DAILY Trulicity 1.5 mg/0.5 mL pen injector 3 mg SUBCUT .once per week levetiracetam 750 mg tablet 750 mg PO .daily Jardiance 25 mg tablet 25 mg PO DAILY omeprazole 20 mg capsule,delayed release(DR/EC) 20 mg PO DAILY divalproex 500 mg tablet extended release 24 hr 500 mg PO BID Did you review [place] [employer] for ALL controlled substances?: No Discussed opioids are addictive and Narcan is available by prescription or from pharmacy.: No Condition: Fair
[2024-11-23 10:20] VITALS: BP 121/90; RESP 16; TEMP 98.1
[2024-11-23] MEDS ORDERED: GUANFACINE 1 MG PO SCH (21:00)
[2024-11-26 13:24] LABS: LEGIONELLA URINARY ANTIGEN Negative (Negative)
== END 2024-11-23 13:05 ==
LOC: MEDSURG B 15:46 → ED 15:46 → MEDSURG B 22:42
PROVIDERS: ADMIT Hospitalist; ATTEND Nurse Practitioner Family
DX: B37.49 Other urogenital candidiasis; J18.9 Pneumonia, unspecified organism; E11.9 Type 2 diabetes mellitus without complications; I10 Essential (primary) hypertension; R56.9 Unspecified convulsions